=== PATIENT | male | born 1950 | race Caucasian/White ===

== ENCOUNTER → 2022-06-04 | Outpatient (CLI) | payer MEDICARE, SELFPAY ==
--- NOTE | 2022-06-04 10:38 | ECHOD_ITS ---
Reason For Study: COPD, SLEEP APNEA Procedure This was a 2D Doppler, Color Flow transthoracic echocardiogram. Exam performed in department. Left Ventricle Normal LV size. The estimated ejection fraction is 40 %. There is mild to moderate global hypokinesis of the left ventricle. Right Ventricle Mildly dilated right ventricle. Mild global right ventricular systolic dysfunction. Atria The left atrium is severely enlarged. The right atrium is mildly enlarged. Mitral Valve Normal mitral valve. Mild (1+) eccentric mitral valve insufficiency. Tricuspid Valve Normal tricuspid valve. Moderate (2+) tricuspid valve insufficiency. Pulmonary artery systolic pressure is 68 mmHg. Aortic Valve Trisinus/trileaflet aortic valve. Mild focal aortic valve thickening. Pulmonic Valve Normal pulmonic valve. Great Vessels Normal aortic root. The pulmonary artery is normal size. The inferior vena cava is dilated. Pericardium/Pleural No pericardial effusion. MMode/2D Measurements & Calculations LVIDd: 6.1 cm IVSd: 1.1 cm LA dimension: 6.2 cm LVIDs: 5.4 cm LVPWd: 1.1 cm RVDd: 4.1 cm FS: 12.0 % LAV(MOD-bp): 174.8 ml LA A4 area: 40.6 cm2 RA A4 area: 22.2 cm2 LAV(MOD-bp) Indexed: 78.2 ml/m2 LAV(MOD-sp2): 176.1 ml LAV(MOD-sp4): 167.8 ml Doppler Measurements & Calculations MV E max mohit: 119.8 cm/sec Lat Peak E' Mohit: 6.5 cm/sec Med Peak E' Mohit: 4.8 cm/sec MV A max mohit: 33.8 cm/sec E/E' lat: 18.5 E/E' med: 24.9 MV E/A: 3.5 Ao V2 max: 162.9 cm/sec LV V1 max: 103.0 cm/sec PA V2 max: 96.2 cm/sec Ao max P.6 mmHg LV V1 max P.3 mmHg TR max mohit: 388.4 cm/sec TR max P.4 mmHg ECHO/Echo Complete Interpretation Summary Normal LV size. The estimated ejection fraction is 40 %. There is mild to moderate global hypokinesis of the left ventricle. Mildly dilated right ventricle. Mild global right ventricular systolic dysfunction. Pulmonary artery systolic pressure is 68 mmHg. Ordering Physician: Sandro Jin Referring Physician: Jaiden Mckeon Performed By: Teresa Wren RDCS, RVT
== END | disposition home or self-care (01) ==
PROVIDERS: PCP Family Medicine; Visit Provider Internal Medicine Pulmonary Disease
DX: G47.30 Sleep apnea, unspecified (principal); J44.9 Chronic obstructive pulmonary disease, unspecified
CPT/HCPCS: 93306